=== PATIENT | female | born 1990 | race American Indian/Alaskan Native ===

== ENCOUNTER 2016-05-02 20:18 | Emergency (ER) | payer BC ==
[2016-05-02 20:27] VITALS: BP 147/106
[2016-05-02 21:55] LABS: Basophils % (Auto) 0.5 % (0.0-1.8); Eosinophils % (Auto) 5.5 % (0.0-4.3); Hematocrit 33.7 % (30.3-42.9); Hemoglobin 10.6 gm/dl (10.1-14.3); Mean Corpuscular HGB Conc 32 % (30-34); Mean Corpuscular Volume 81 fl (79-97); Platelet Count 153 K/mm3 (140-440); Red Blood Count 4.17 M/mm3 (3.65-5.03); Red Cell Distribution Width 15.5 % (13.2-15.2); White Blood Count 5.8 K/mm3 (4.5-11.0)
[2016-05-02 22:04] LABS: Mean Corpuscular Hemoglobin 25 pg (28-32)
[2016-05-02 22:09] LABS: Alanine Aminotransferase 10 units/L (7-56); Albumin 3.7 g/dL (3.9-5); Albumin/Globulin Ratio 1.2 %; Alkaline Phosphatase 76 units/L (35-129); Anion Gap 19 mmol/L; BUN/Creatinine Ratio 16.25; Bilirubin,Total < 0.2 mg/dL (0.1-1.2); Blood Urea Nitrogen 13 mg/dL (7-17); Carbon Dioxide 22 mmol/L (22-30); Chloride 104.3 mmol/L (98-107); Glucose 111 mg/dL (65-100); Lipase 19 units/L (13-60); Potassium 4.1 mmol/L (3.6-5.0); Sodium 141 mmol/L (137-145); Total Protein 6.7 g/dL (6.3-8.2)
--- NOTE | 2016-05-04 09:33 | ED Elopement Review ---
ED Pt Elopement review - Results review Lab results: Laboratory Tests 05/02/16 05/02/16 21:28 21:28 WBC 5.8 RBC 4.17 Hgb 10.6 Hct 33.7 MCV 81 MCH 25 L MCHC 32 RDW 15.5 H Plt Count 153 Lymph % (Auto) 27.0 [place] % (Auto) 7.3 Eos % (Auto) 5.5 H Baso % (Auto) 0.5 Lymph # 1.6 [place] # 0.4 Eos # 0.3 Baso # 0.0 Seg Neutrophils % 59.7 Seg Neutrophils # 3.5 Sodium 141 Potassium 4.1 Chloride 104.3 Carbon Dioxide 22 Anion Gap 19 BUN 13 Creatinine 0.8 Estimated GFR > 60 BUN/Creatinine Ratio 16.25 Glucose 111 H Calcium 8.0 L Total Bilirubin < 0.2 AST 14 ALT 10 Alkaline Phosphatase 76 Total Protein 6.7 Albumin 3.7 L Albumin/Globulin Ratio 1.2 Lipase 19 - Call Back decision Pt Call Back Decision: No action required
== END 2016-05-02 23:40 | disposition left against medical advice (07) ==
LOC: ED 20:18
DX: R10.11 Right upper quadrant pain (principal); Z53.21 Procedure and treatment not carried out due to patient leaving prior to being seen by health care provider
CPT/HCPCS: 36415; 80053; 83690; 85025

== ENCOUNTER 2016-06-28 22:14 | Emergency (ER) | payer BC ==
[2016-06-28] MEDS ORDERED: TYLENOL ONE (22:39)
[2016-06-28] MEDS ORDERED: TYLENOL PO ONE (22:58)
[2016-06-28 23:01] VITALS: BP 119/82
[2016-06-29] MEDS ORDERED: TORADOL IM ONE (00:05)
--- NOTE | 2016-06-29 00:05 | Emergency Department Report ---
ED Neck Pain/Injury HPI - General Chief Complaint: Neck Pain/Injury Stated Complaint: L SIDE HEAD PAIN Time Seen by Provider: 06/28/16 23:40 Source: patient Mode of arrival: Ambulatory Limitations: No Limitations - History of Present Illness Initial Comments: Patient here complaining of neck pain. 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 Denies any trauma. Denies any numbness or tingling to extremities. Pain is 4-10. She denies any headache. Denies any nausea or vomiting. Denies any fever or chills. Denies any trauma to her neck. MD Complaint: neck pain -: During the night Place: work Radiation: left lateral Severity: mild Severity scale (0 -10): 4 Quality: sharp, aching Consistency: constant Improves With: immobilization Worsens With: movement of neck Context: unknown Associated Symptoms: other (pain radiating into left side of face and ear.). denies: headache, fever, numbness, tingling, weakness, vertigo, difficulty walking, swollen glands, difficulty swallowing, nausea, vomiting Treatments Prior to Arrival: none - Related Data Previous Rx's Medication Instructions Recorded Last Taken Type Diazepam Tab [Valium] 5 mg PO TID PRN #14 tablet 10/21/15 Unknown Rx predniSONE [Deltasone] 20 mg PO QDAY #6 tab 10/21/15 Unknown Rx Cyclobenzaprine [Flexeril] 10 mg PO TID PRN #15 tablet 06/29/16 Unknown Rx Ibuprofen [Motrin] 600 mg PO Q8H PRN #15 tablet 06/29/16 Unknown Rx Allergies Allergy/AdvReac Type Severity Reaction Status Date / Time No Known Allergies Allergy Unverified 02/15/14 08:02 ED Review of Systems ROS: Stated complaint: L SIDE HEAD PAIN Other details as noted in HPI Comment: All other systems reviewed and negative Constitutional: denies: chills, fever Eyes: denies: vision change Respiratory: no symptoms reported Cardiovascular: denies: chest pain, palpitations, edema, syncope Gastrointestinal: denies: abdominal pain, nausea, vomiting, diarrhea Musculoskeletal: arthralgia. denies: back pain Skin: denies: rash Neurological: denies: headache, weakness, numbness, paresthesias, confusion, abnormal gait, vertigo ED Past Medical Hx - Past Medical History Previous Medical History?: Yes Hx Hypertension: No Hx Congestive Heart Failure: No Hx Diabetes: No Hx Deep Vein Thrombosis: No Hx Renal Disease: No Hx Sickle Cell Disease: No Hx Seizures: No Hx Asthma: No Hx COPD: No Hx HIV: No Additional medical history: cholelithiasis - Surgical History Past Surgical History?: Yes Additional Surgical History: tubal ligation - Family History Family history: no significant - Social History Smoking Status: Never Smoker Substance Use Type: None - Medications Home Medications: Home Medications Medication Instructions Recorded Confirmed Last Taken Type Diazepam Tab [Valium] 5 mg PO TID PRN #14 tablet 10/21/15 Unknown Rx predniSONE [Deltasone] 20 mg PO QDAY #6 tab 10/21/15 Unknown Rx Cyclobenzaprine [Flexeril] 10 mg PO TID PRN #15 tablet 06/29/16 Unknown Rx Ibuprofen [Motrin] 600 mg PO Q8H PRN #15 tablet 06/29/16 Unknown Rx ED Physical Exam - General Limitations: No Limitations General appearance: alert, in no apparent distress - Head Head exam: Present: atraumatic, normocephalic, normal inspection - Expanded Head Exam Expanded Head exam: Absent: laceration, abrasion, contusion, hematoma, racoon eyes, chavez's sign, general tenderness, tenderness of temporal artery, CSF rhinorrhea , CSF otorrhea - Eye Eye exam: Present: normal appearance, PERRL, EOMI. Absent: conjunctival injection, periorbital swelling, periorbital tenderness Pupils: Present: normal accommodation - ENT ENT exam: Present: normal exam, normal orophraynx, mucous membranes moist, TM's normal bilaterally, normal external ear exam - Neck Neck exam: Present: full ROM. Absent: tenderness, meningismus, lymphadenopathy - Expanded Neck Exam Expanded Neck exam: Present: midline deformity. Absent: tenderness, anterior neck swelling, tracheal deviation - Respiratory Respiratory exam: Present: normal lung sounds bilaterally. Absent: respiratory distress, chest wall tenderness - Cardiovascular Cardiovascular Exam: Present: regular rate, normal rhythm, normal heart sounds - GI/Abdominal GI/Abdominal exam: Present: soft, normal bowel sounds. Absent: distended, tenderness, guarding, rebound, rigid - Extremities Exam Extremities exam: Present: normal inspection, full ROM, normal capillary refill. Absent: tenderness, pedal edema, joint swelling, calf tenderness - Back Exam Back exam: Present: normal inspection, full ROM. Absent: tenderness, CVA tenderness (R), CVA tenderness (L), muscle spasm, paraspinal tenderness, vertebral tenderness, rash noted - Neurological Exam Neurological exam: Present: alert, oriented X3, normal gait, reflexes normal. Absent: motor sensory deficit - Expanded Neurological Exam Expanded Neurological exam: Absent: innattentive, memory loss-remote event, memory loss- recent event, ataxia, receptive aphasia, expressive aphasia, total aphasia, tremor, protecting the airway Patient oriented to: Present: person, place, time Speech: Present: fluid speech Cranial nerves: EOM's Intact: Normal, Facial Sensation: Normal Upper motor neuron: Pronator Drift: Normal Sensory exam: Upper Extremity Light Touch: Normal, Upper Extremity Temperature: Normal, Lower Extremity Light Touch: Normal, Lower Extremity Temperature: Normal Motor strength exam: RUE: 5, LUE: 5, RLE: 5, LLE: 5 DTR: bicep (R): 2+, bicep (L): 2+, tricep (R): 2+, tricep (L): 2+, knee (R): 2+ , knee (L): 2+, ankle (R): 2+, ankle (L): 2+ Best Eye Response ([place]): (4) open spontaneously Best Motor Response ([place]): (6) obeys commands Best Verbal Response ([place]): (5) oriented [place] Total: 15 - Psychiatric Psychiatric exam: Present: normal affect, normal mood - Skin Skin exam: Present: warm, dry, intact, normal color. Absent: rash ED Course Vital Signs 06/28/16 06/29/16 22:58 00:33 Temperature 98.4 F Pulse Rate 83 Respiratory 14 18 Rate Blood Pressure 119/82 [Right] O2 Sat by Pulse 100 Oximetry - Reevaluation(s) Reevaluation #1: 06/29/16 01:46 Patient remained stable throughout ED stay. ED Medical Decision Making - Radiology Data Radiology results: report reviewed CT scan of C-spine revealed normal exam. - Medical Decision Making ED course: I discussed with patient that her CT scan of her neck was normal and she has a neck muscle strain. Diagnosis and treatment plan and patient was understanding. Condition discharged home to rest 48 hours. Given her cervix prescription for Flexeril and Motrin. Critical care attestation.: If time is entered above; I have spent that time in minutes in the direct care of this critically ill patient, excluding procedure time. ED Disposition Clinical Impression: Neck muscle strain Qualifiers: Encounter type: initial encounter Qualified Code(s): S16.1XXA - Strain of muscle, fascia and tendon at neck level, initial encounter Disposition: DISCHARGED TO HOME OR SELFCARE Is pt being admited?: No Does the pt Need Aspirin: No Condition: Stable Instructions: Muscle Strain (ED) Additional Instructions: Rest for [address] heavy machinery while taking Flexeril as this can cause drowsiness. Prescriptions: Cyclobenzaprine [Flexeril] 10 mg PO TID PRN #15 tablet PRN Reason: Muscle Spasm Ibuprofen [Motrin] 600 mg PO Q8H PRN #15 tablet PRN Reason: Pain Referrals: ZAIN MCCARTNEY MD [Staff Physician] - 2-3 Days Forms: Work/School Release Form(ED)
--- NOTE | 2016-06-29 01:23 | Cat Scan Report ---
FINAL REPORT PROCEDURE: CT CERVICAL SPINE WO CON TECHNIQUE: Computerized tomography of the cervical spine was performed from the skull base to T1 without contrast material. HISTORY: cspine tenderness COMPARISON: No prior studies are available for comparison. FINDINGS: The alignment of the vertebral bodies is normal. The heights of the vertebral bodies and the disc spaces are maintained. No acute fracture or dislocation of the cervical spine. The spinal canal is adequate at all levels. The visualized portion of the airway is patent. IMPRESSION: Normal CT cervical spine..
== END 2016-06-29 02:08 | disposition home or self-care (01) ==
LOC: ED 22:14
DX: S16.1XXA Strain of muscle, fascia and tendon at neck level, initial encounter (principal); X58.XXXA Exposure to other specified factors, initial encounter; Y93.E9 Activity, other interior property and clothing maintenance; Y99.9 Unspecified external cause status; Y92.89 Other specified places as the place of occurrence of the external cause
CPT/HCPCS: 72125; 96372; 99283; J1885

== ENCOUNTER 2018-07-04 07:06 | Day surgery (SDC) | payer BC, MEDICAID ==
--- NOTE | 2018-07-03 14:10 | Short Stay Summary ---
Short Stay Documentation Date of service: 07/04/18 Narrative H&P: 28y/o with the complaint of pelvic pain and dyspareunia. Ultrasound demonstrated findings of left complex ovarian cyst measuring 3.5cm. The patient requests surgical management of her symptoms Patient has been reassessed/reevaluated/re-examined. H&P has been reviewed. No interval changes. - History Principal diagnosis: Ovarian cyst Past Medical History: other (morbid obesity) Past Surgical History: No surgical history Social history: - Allergies and Medications Current Medications: Allergies No Known Allergies Allergy (Unverified 06/28/18 17:51) Home Medications Medication Instructions Recorded Confirmed Last Taken Type No Known Home Medications [No 06/28/18 06/28/18 Unknown History Reported Home Medications] - Physical exam General appearance: no acute distress Integumentary: no rash HEENT: Atraumatic Lungs: Clear to auscultation Breasts: deferred Heart: Regular rate Gastrointestinal: normal Female Genitourinary: deferred Rectal Exam: deferred Extremities: no ischemia - Brief post op/procedure progress note Date of procedure: 07/04/18 Pre-op diagnosis: left ovarian cyst; pelvic pain Post-op diagnosis: same Procedure: Laparoscopy Left ovarian cystectomy Lysis of adhesions Anesthesia: VIOLETAA Surgeon: VALENTINO MAC Estimated blood loss: minimal Pathology: list (ovarian cyst wall) Specimen disposition: to lab Condition: stable - Hospital course Hospital course: The patient was taken to the operating room and underwent a laparoscopy for an ovarian cyst. Please see operative note for details of surgery. A postoperative course was uneventful. - Disposition Condition at discharge: Good Disposition: DC-01 TO HOME OR SELFCARE Short Stay Discharge Plan Activity: other (pelvic rest for 1 week) Diet: regular Additional Instructions: Scheduled follow-up with Dr. Mac in 2 weeks Prescriptions: Ibuprofen [Motrin] 800 mg PO Q8HR PRN #60 tablet PRN Reason: Pain, Mild (1-3) oxyCODONE /ACETAMINOPHEN [Percocet 5/325] 1 tab PO Q6HR PRN #20 tablet PRN Reason: Pain
[~2018-07-04 07:06] MED LIST: LACTATED RINGERS 1,000 ML IV SCH
--- NOTE | 2018-07-04 08:56 | Anesthesia Consultation ---
Anesthesia Consult and Med Hx Date of service: 07/04/18 - Airway Anesthetic Teeth Evaluation: Good ROM Head & Neck: Adequate Mental/Hyoid Distance: Adequate Mallampati Class: Class II Intubation Access Assessment: Good - Pulmonary Exam CTA: Yes - Cardiac Exam Cardiac Exam: No Murmur - Pre-Operative Health Status ASA Pre-Surgery Classification: ASA2 - Pulmonary Hx Asthma: No COPD: No Hx Pneumonia: No - Cardiovascular System Hx Hypertension: No - Central Nervous System Hx Seizures: No Hx Psychiatric Problems: No - Gastrointestinal Hx Gastroesophageal Reflux Disease: No - Endocrine Hx Renal Disease: No Hx End Stage Renal Disease: No Hx Hypothyroidism: No Hx Hyperthyroidism: No - Hematic Hx Anemia: Yes ("a little" not being treated) Hx Sickle Cell Disease: No - Other Systems Hx Alcohol Use: Yes (Occas) Hx Cancer: No Hx Obesity: Yes
--- NOTE | 2018-07-04 08:56 | Anesthesia Day of Surgery ---
Anesthesia Day of Surgery - Day of Surgery Patient Examined: Yes Patient H&P Reviewed: Yes Patient is NPO: Yes
[2018-07-04] MEDS ORDERED: VERSED IV NR (09:00)
[2018-07-04] MEDS ORDERED: PEPCID IV NR (09:00)
[2018-07-04] MEDS ORDERED: DECADRON ONE (09:11)
[2018-07-04] MEDS ORDERED: ZOFRAN ONE (09:11)
[2018-07-04] MEDS ORDERED: TORADOL ONE (09:11)
[2018-07-04] MEDS ORDERED: XYLOCAINE MPF 2% ONE (09:11)
[2018-07-04] MEDS ORDERED: ZEMURON IV ONE (09:11)
[2018-07-04] MEDS ORDERED: SUBLIMAZE ONE ×2 (09:12→10:25)
[2018-07-04] MEDS ORDERED: DIPRIVAN 10 MG/ML IV ONE (09:12)
[2018-07-04] MEDS ORDERED: MARCAINE 0.5% INFILTRATI ONE ×2 (09:40→09:48)
[2018-07-04] MEDS ORDERED: NACL 0.9% IR ONE (09:48)
[2018-07-04] MEDS ORDERED: BLOXIVERZ ONE (10:06)
[2018-07-04] MEDS ORDERED: ROBINUL ONE (10:06)
--- NOTE | 2018-07-04 10:21 | Operative Report ---
Operative Report Operative Report: Date of surgery: 07/04/2018 Preoperative diagnosis: Left ovarian cyst; pelvic pain Postoperative diagnosis: Same as above Procedure: Laparoscopy; left ovarian cystectomy; lysis of adhesions Surgeon: Pretty Canales M.D. Anesthesia: General endotracheal anesthesia Estimated blood loss: Minimal Findings: Left ovarian cyst Pathology: Ovarian cyst wall Indication: 28-year-old with a history of persistent left ovarian cyst. The patient also reported pelvic pain and dyspareunia. She elected to undergo surgical management for her symptoms. Procedure: The patient was taken to the operating room and given general endotracheal anesthesia without complication. The patient is prepped and draped in a normal sterile fashion. A bivalve speculum was placed in the patient's vagina and a single-tooth tenaculum was placed on the anterior lip of the cervix .A uterine acorn manipulator was placed, and the bivalve speculum was then removed. Attention was then turned to the patient's abdomen where a 5 mm infraumbilical skin incision was then made. A Veress needle was placed and peritoneal entry was verified water-filled syringe. Insufflation of the peritoneal cavity was performed with CO2 gas. A 5 mm trocar was placed and the laparoscope was then inserted. The patient was then placed in Trendelenburg. A 7 mm suprapubic skin incision was then made. Under direct visualization a 5 mm trocar was then placed. An additional left lateral 5 mm trocar was placed under direct visualization. General survey of the patient's abdomen revealed left ovarian cyst measuring 2-3 cm. Findings a filmy adhesions in the posterior cul-de-sac. The left adnexa was grasped with a grasper. The monopolar scissors were then used in order to excise the left ovarian cyst. The ovarian cyst wall was removed through the 5 mm trocar. The adhesions in the posterior cul-de-sac where lysed with the monopolar scissors. There was no evidence of endometriotic implants. The mm trocars were then removed. The pneumoperitoneum was then released. The 5 mm trocar laparoscope was then removed. The skin incisions were then closed with 4-0 Monocryl. The incisions were injected with quarter percent Marcaine. Dressings were applied to the incision. The vaginal instruments were then removed atraumatically. Then successfully extubated and taken to the recovery room. All sponge laps and needle counts were correct 2.
[2018-07-04] MEDS ORDERED: REGLAN ONE (10:41)
[2018-07-04 11:15] VITALS: BP 109/64
[2018-07-04] MEDS ORDERED: PERCOCET 5/325 PO ONE (12:00)
== END 2018-07-04 11:55 | disposition home or self-care (01) ==
LOC: OR 07:06
PROVIDERS: ATTEND Obstetrics & Gynecology
DX: N83.202 Unspecified ovarian cyst, left side (principal); E66.9 Obesity, unspecified; Z79.899 Other long term (current) drug therapy; Z90.49 Acquired absence of other specified parts of digestive tract; Z98.51 Tubal ligation status; Z72.89 Other problems related to lifestyle; Z83.3 Family history of diabetes mellitus; Z98.890 Other specified postprocedural states; Z82.49 Family history of ischemic heart disease and other diseases of the circulatory system; Z86.2 Personal history of diseases of the blood and blood-forming organs and certain disorders involving the immune mechanism
CPT/HCPCS: 58662; 81025; 88305; J1100; J1885; J2250; J2405; J2704; J2710; J2765; J3010